=== PATIENT | female | born 2000 | race Caucasian/White ===

== ENCOUNTER 2025-02-01 16:02 | Emergency (ER) | payer OTHER ==
[~2025-02-01] VITALS: Ht 170.2 cm; Wt 86.3 kg
[2025-02-01 16:14] VITALS: TEMP 98.8
[2025-02-01 16:45] LABS: COVID AG,FIA SOURCE NASAL SWAB
[2025-02-01 17:07] LABS: INFLUENZA TYPE A NEGATIVE FOR TYPE A (NEGATIVE); INFLUENZA TYPE B NEGATIVE FOR TYPE B (NEGATIVE)
[2025-02-01 17:24] LABS: SARS-COV2 (COVID) ANTIGEN,FIA Positive (Negative)
[2025-02-01] MEDS ORDERED: 0.9% SODIUM CHLORIDE 5 ML NEB SOLUTION NEB ONE (20:25)
[2025-02-01 20:26] VITALS: PULSE 100; RESP 20; O2SAT 96
[2025-02-01] MEDS: ALBUTEROL SULFATE 2.5 MG/0.5 ML NEB SOLUTION NEB ONE (20:26)
[2025-02-01 20:44] VITALS: PULSE 101; RESP 20; O2SAT 98
[2025-02-01 21:25] VITALS: BP 118/70; PULSE 98; RESP 18; O2SAT 97
[2025-02-01] MEDS ORDERED: ALBU18HF12 IH (22:32)
== END 2025-02-01 22:48 | disposition home or self-care (01) ==
LOC: EMS 16:02
DX: O98.519 Other viral diseases complicating pregnancy, unspecified trimester (principal); U07.1 COVID-19; Z3A.32 32 weeks gestation of pregnancy
CPT/HCPCS: 87804; 94640; 94760; 99283